=== PATIENT | male | born 1960 ===

== ENCOUNTER 2021-08-11 23:33 | Emergency (ER) | payer SELFPAY ==
[2021-08-11 23:39] VITALS: BP 131/92; PULSE 74; BMI 20.6
[2021-08-11] MEDS ORDERED: SODIUM CHLORIDE 0.9% 500 ML INFUS.BAG IV ONE (23:39)
[2021-08-12 00:07] LABS: BASO % 0.6 % (0-2.0); EOS % 1.5 % (0-4.5); HEMATOCRIT 39.4 % (35.4-49); HEMOGLOBIN 13.2 GM/dL (11.7-16.9); LYMPH % 35.5 % (8-40); MCHC 33.4 g/dl (32.0-35.9); MEAN CELL VOLUME 92.9 fl (80-96); MEAN PLT VOLUME 7.5 fl (7.5-11.1); MONO % 9.3 % (3.8-10.2); NEUT % 53.1 % (42.8-82.8); PLATELET COUNT 261 10^3/uL (134-434); RBC 4.24 M/mm3 (4.00-5.60); RDW 12.9 % (11.9-15.9); WHITE BLOOD COUNT 7.1 K/mm3 (4.0-10.0)
[2021-08-12 00:28] LABS: CALCIUM 9.2 mg/dL (8.5-10.1)
[2021-08-12 00:29] LABS: ALBUMIN 4.2 g/dl (3.4-5.0); BLOOD UREA NITROGEN 11.6 mg/dL (7-18); MAGNESIUM 2.4 mg/dL (1.8-2.4)
[2021-08-12 00:32] LABS: CREATININE 0.9 mg/dL (0.55-1.3)
[2021-08-12 00:33] LABS: TOT PROT 8.1 g/dl (6.4-8.2)
[2021-08-12 00:34] LABS: BILIRUBIN,TOTAL 0.6 mg/dL (0.2-1)
== END 2021-08-12 01:44 | disposition home or self-care (01) ==
LOC: JER 23:33
DX: T62.91XA Toxic effect of unspecified noxious substance eaten as food, accidental (unintentional), initial encounter (principal); R11.2 Nausea with vomiting, unspecified
CPT/HCPCS: 36415; 80053; 83735; 85025; 93005; 93010; 99284-25